=== PATIENT | female | born 1980 | race Caucasian/White ===

== ENCOUNTER 2019-07-14 13:08 | Emergency (ER) | payer SELFPAY ==
[2019-07-14 14:07] LABS: #Eosinphils 0.5 thou/uL (0.0-0.7); #Lymphocytes 1.9 thou/uL (1.20-3.40); #Monocytes 0.8 thou/uL (0.11-0.59); #Neutrophils 7.1 thou/uL (1.40-6.50); %Basophils 0.3 % (0.0-1.0); %Eosinophils 4.8 % (0.0-10.0); %Lymphocytes 18.5 % (21.0-51.0); %Monocytes 7.4 % (0.0-10.0); Hemoglobin 14.2 g/dL (12.0-16.0); Mean Corpuscular HGB CONC 32.1 g/dL (32.0-36.0); Mean Corpuscular Hemoglobin 28.2 pg (27.0-31.0); Mean Corpuscular Volume 87.8 fL (78.0-98.0); Mean Platelet Volume 8.7 fL (7.4-10.4); Platelet Count 258 thou/uL (130-400); Red Blood Cell (RBC) Count 5.04 mill/uL (4.20-5.40); White Blood Cell (WBC) Count 10.2 thou/uL (4.8-10.8)
--- NOTE | 2019-07-14 14:38 | ULT ---
TRANSVAGINAL PELVIC ULTRASOUND INCLUDING VASCULAR DUPLEX WITH COLOR AND SPECTRAL DOPPLER IMAGING: Date: 07/14/2019 HISTORY: Less than 6 week ectopic , right-sided pelvic pain. FINDINGS: Uterus measures 8.7 x 4.7 x 4.4 cm in size. No evidence for an intrauterine gestational sac. Right ovary measures 1.9 x 1.9 x 2.3 cm. Left ovary measures 2.0 x 2.2 x 2.9 cm. Endometrium thickened at 1.5 cm. No abnormal fluid collection within the pelvis. IMPRESSION: 1. No convincing ultrasound evidence for intrauterine or extrauterine at this ti me. Please correlate with serum HCGs, which are not available at the time of this exam. Depending on concern, short-term follow-up study in 1-2 weeks might be considered. 2. Somewhat thickened endometrium at 1.5 cm. POS: [facility]
[2019-07-14 14:51] LABS: Bilirubin Negative (Negative); Blood, Urine Negative (Negative); Clarity Clear (Clear); Glucose, Urine (Dipstick) Normal (Negative); Leukocyte Negative Leu/uL (Negative); Nitrite Negative (Negative); Protein, Urine (Dipstick) Negative (Neg-Trace); Urobilinogen Normal mg/dL (Less than 2)
== END 2019-07-14 15:31 | disposition home or self-care (01) ==
LOC: ERS 13:08
DX: O99.89 Other specified diseases and conditions complicating pregnancy, childbirth and the puerperium (principal); R10.31 Right lower quadrant pain; O99.511 Diseases of the respiratory system complicating pregnancy, first trimester; J45.909 Unspecified asthma, uncomplicated; F41.0 Panic disorder [episodic paroxysmal anxiety]; O99.341 Other mental disorders complicating pregnancy, first trimester; Z79.51 Long term (current) use of inhaled steroids; Z3A.01 Less than 8 weeks gestation of pregnancy
CPT/HCPCS: 36415; 76856; 81003; 84702; 85025

== ENCOUNTER → 2019-07-28 | Day surgery (SDC) | payer MEDICAID, SELFPAY ==
[~2019-07-28] MED LIST: Bupivacaine PF 0.5% 30 ML VIAL ONE; Clindamycin/D5W 900 mg/50 ml Premix Bag ONE; Fentanyl 100 MCG/2 ML VIAL ONE; Glycopyrrolate 0.2 MG/ML 5 ML SYRINGE ONE; Lidocaine 1% PF 5 ML VIAL ONE; Lidocaine 1% w/Epinephrine 1:100K 20 ML VIAL ONE; Midazolam HCl 2 mg/2 ml Vial ONE; Ondansetron HCl/PF 4 MG/2 ML Vial IVP PRN; PROPOFOL 200 MG/20 ML VIAL ONE; Promethazine HCl 25 MG/ML VIAL IM PRN; Promethazine HCl 25 MG/ML VIAL SLOW IVP PRN; Rocuronium Bromide 10 MG/ML (10ML VIAL) ONE; Succinylcholine Chloride 20 MG/ML 10 ml SYRINGE FS ONE
[2019-07-28 17:39] LABS: #Basophils 0.1 thou/uL (0.0-0.2); #Eosinphils 0.7 thou/uL (0.0-0.7); #Lymphocytes 2.2 thou/uL (1.20-3.40); #Monocytes 0.6 thou/uL (0.11-0.59); #Neutrophils 9.3 thou/uL (1.40-6.50); %Basophils 0.4 % (0.0-1.0); %Eosinophils 5.3 % (0.0-10.0); %Lymphocytes 17.4 % (21.0-51.0); %Monocytes 4.7 % (0.0-10.0); %Neutrophils 72.3 % (42.0-75.0); Hemoglobin 15.1 g/dL (12.0-16.0); Mean Corpuscular HGB CONC 33.1 g/dL (32.0-36.0); Mean Corpuscular Hemoglobin 29.6 pg (27.0-31.0); Mean Corpuscular Volume 89.4 fL (78.0-98.0); Mean Platelet Volume 8.4 fL (7.4-10.4); Platelet Count 274 thou/uL (130-400); RBC Distribution Width 14.3 % (11.5-14.5); Red Blood Cell (RBC) Count 5.11 mill/uL (4.20-5.40); White Blood Cell (WBC) Count 12.8 thou/uL (4.8-10.8)
--- NOTE | 2019-07-29 08:53 | OP ---
DATE OF PROCEDURE: 07/28/2019 PREOPERATIVE DIAGNOSIS: Suspected right ectopic following tubal reversal. POSTOPERATIVE DIAGNOSES: No definitive evidence of ectopic within the tubes. Omental adhesions to the anterior abdominal wall and uterine adhesions noted. PROCEDURE PERFORMED: Laparoscopy with thorough examination of the abdomen and pelvic cavities along with extensive lysis of adhesions. COMPLICATIONS: None. ESTIMATED BLOOD LOSS: Less than 50 mL. ANESTHESIA: General. DESCRIPTION OF PROCEDURE: After extensive counseling of Ms. Zuniga in my office as well as in the preoperative area where her was present along with a translation service run through the iPad with a live person. I was able to answer the patient's and family's questions in detail. The risks, benefits, and alternatives to surgery were explained to her as carefully and in as detailed a manner as possible. I did explain to Ms. Zuniga that I could not definitively be certain that she had an ectopic , but I had 6 main areas of concern leading to that possible diagnosis. 1. She had a history of tubal reversal followed by lack of successful pregnancies. This was her first she noted following tubal reversal. 2. She had an empty gestational sac that was not changing in size and did not contain yolk sac. This appeared to be very consistent with a pseudosac typical of ectopic . 3. Her beta-hCG had not risen in a normal fashion and was lower than expected for the expected gestational age and lower than expected given the number of days we were monitoring them in the outpatient setting. 4. The patient was noting she was having on and off new bright red spotting also typical of ectopic with a pseudosac. 5. The patient complained of intermittent right-sided adnexal pain. 6. We had ultrasound evidence of what appeared to be a cystic right adnexal mass adjacent to the right ovary. It was these 6 factors combined that made me have a high suspicion of ectopic in this patient, although I did tell her that I could not be 100% certain of this diagnosis. I also advised the patient to strongly consider the option of methotrexate to avoid surgical risks as well as surgical costs in the situation. The patient declined methotrexate therapy and would not even hear of it. She was adamant to undergo surgery to get a definitive diagnosis as well as being tired of going to the emergency room without answers and having sleepless nights, worried about her condition. We proceeded to the operating room where she underwent general endotracheal anesthesia. She was prepped and draped in normal sterile fashion. She received a Clifford catheter in her bladder for surgery. She was placed in a dorsal supine position and never underwent a vaginal preparation of any kind. No instrumentation, speculums, or cleaning solutions were introduced into the vagina as we did not want to introduce any potential risk of miscarriage in the situation if the diagnosis of ectopic was incorrect. We then used lidocaine with epinephrine at the umbilicus, made a small incision with scalpel, and entered the peritoneal cavity with a Veress needle. The peritoneal cavity was insufflated in the typical fashion and then a 5 mm blunt trocar was placed in the umbilicus. Confirmation was then done with the camera. The patient was placed in a Trendelenburg position and a second trocar was placed in the patient's left lower quadrant in order for a blunt probe to be used to perform a thorough and complete survey of the pelvis and accessible abdominal areas. We noted immediately that the patient had omental adhesions that were relatively thick and dense to the anterior abdominal wall, which made visualization somewhat difficult of other areas. Also of note , the fallopian tubes on both sides appeared to be approximately half of the normal length with the fimbriated ends scarred in place to the uterus, although those ends did not appear to be completely clubbed or completely abnormal per se. They certainly were short and adhesed to surrounding structures though. The anterior central uterus was also adhesed to the anterior abdominal wall. At this point, there was no blood or fluid noted within the abdomen and no definitive ectopic was seen. The right structure suspected on ultrasound hours earlier, could not be found within the right adnexal area, which was somewhat perplexing. After one more exhaustive survey of the pelvis and accessible abdominal areas, we decided to perform a lysis of adhesion in order to improve visualization and potentially improve the patient's pain that she was having. We used a 5 mm LigaSure to achieve that, and the procedure took approximately 25 to 30 minutes to complete. At the end of the lysis of adhesions, we had freed adhesions from the uterus to other surrounding structures and removed omental adhesions from the anterior abdominal wall. Still, no ectopic could be found. No bleeding or injuries were noted. The abdomen was allowed to be desufflated and the two incisions 5 mm in size were closed with 4-0 Monocryl at the dermal layer and then Dermabond was applied on the surface. The patient was then extubated, transferred to an ambulatory bed, and taken to recovery in stable condition. Once the patient was more awake, I met in the PACU unit with her and her and spent another 25 to 30 minutes with the family, explaining our findings and the next course of action. Job ID: [id number] MTDD
== END ==
LOC: SDC 16:38
PROVIDERS: ATTEND Obstetrics & Gynecology
PROC: 0DNU4ZZ Release Omentum, Percutaneous Endoscopic Approach (ICD-10-PCS; principal; 2019-07-28)
PROC: 0UN74ZZ Release Bilateral Fallopian Tubes, Percutaneous Endoscopic Approach (ICD-10-PCS; principal; 2019-07-28)
DX: K66.0 Peritoneal adhesions (postprocedural) (postinfection) (principal); N83.8 Other noninflammatory disorders of ovary, fallopian tube and broad ligament; F17.210 Nicotine dependence, cigarettes, uncomplicated; Z79.899 Other long term (current) drug therapy; Z88.0 Allergy status to penicillin; Z88.5 Allergy status to narcotic agent; Z98.890 Other specified postprocedural states
CPT/HCPCS: 36415; 84702; 85025; 86850; 86900; 86901; J2001; J2250; J2704; J3010; J3490; S0020

== ENCOUNTER 2019-07-29 18:32 | Emergency (ER) | payer SELFPAY | END 2019-07-29 19:40 | disposition left against medical advice (07) | LOC: ERS 18:32 | DX: Z53.21 Procedure and treatment not carried out due to patient leaving prior to being seen by health care provider (principal) ==

== ENCOUNTER 2019-08-05 19:24 | Emergency (ER) | payer MEDICAID, SELFPAY ==
[~2019-08-05 19:24] MED LIST changes: -Bupivacaine PF 0.5% 30 ML VIAL ONE; -Clindamycin/D5W 900 mg/50 ml Premix Bag ONE; -Fentanyl 100 MCG/2 ML VIAL ONE; -Glycopyrrolate 0.2 MG/ML 5 ML SYRINGE ONE; +Iopamidol 370 76% 100 ML VIAL ONE; -Lidocaine 1% PF 5 ML VIAL ONE; -Lidocaine 1% w/Epinephrine 1:100K 20 ML VIAL ONE; -Midazolam HCl 2 mg/2 ml Vial ONE; -Ondansetron HCl/PF 4 MG/2 ML Vial IVP PRN; -PROPOFOL 200 MG/20 ML VIAL ONE; -Promethazine HCl 25 MG/ML VIAL IM PRN; -Promethazine HCl 25 MG/ML VIAL SLOW IVP PRN; -Rocuronium Bromide 10 MG/ML (10ML VIAL) ONE; -Succinylcholine Chloride 20 MG/ML 10 ml SYRINGE FS ONE
[2019-08-05] MEDS ORDERED: Ondansetron PF 4 MG/2 ML Vial ONE (20:01)
[2019-08-05] MEDS ORDERED: Morphine 4 MG/ML VIAL ONE (20:01)
[2019-08-05 20:07] LABS: #Basophils 0.1 thou/uL (0.0-0.2); #Eosinphils 0.6 thou/uL (0.0-0.7); #Lymphocytes 2.6 thou/uL (1.20-3.40); #Monocytes 0.7 thou/uL (0.11-0.59); #Neutrophils 6.8 thou/uL (1.40-6.50); %Basophils 0.6 % (0.0-1.0); %Lymphocytes 23.8 % (21.0-51.0); %Monocytes 6.3 % (0.0-10.0); %Neutrophils 63.2 % (42.0-75.0); Hemoglobin 15.1 g/dL (12.0-16.0); Mean Corpuscular HGB CONC 34.3 g/dL (32.0-36.0); Mean Corpuscular Hemoglobin 30.6 pg (27.0-31.0); Mean Corpuscular Volume 89.2 fL (78.0-98.0); Mean Platelet Volume 7.9 fL (7.4-10.4); Platelet Count 334 thou/uL (130-400); Red Blood Cell (RBC) Count 4.95 mill/uL (4.20-5.40); White Blood Cell (WBC) Count 10.8 thou/uL (4.8-10.8)
[2019-08-05 20:27] LABS: ALT (SGPT) 20 U/L (8-55); AST (SGOT) 17 U/L (5-34); Albumin 4.2 g/dL (3.5-5.0); Alkaline Phosphatase 112 U/L (40-110); Anion Gap 17 mmol/L (10-20); BUN (Urea Nitrogen) 10 mg/dL (7.0-18.7); Bilirubin, Total Less than 0.2 mg/dL (0.2-1.2); Calc. Creatinine Clearance 0 mL/min (70-130); Calcium 9.2 mg/dL (7.8-10.44); Carbon Dioxide 19 mmol/L (22-29); Chloride 107 mmol/L (98-107); Estimated GFR-MDRD 89; Globulin 3.2 g/dL (2.4-3.5); Glucose 112 mg/dL (70-105); Potassium 3.6 mmol/L (3.5-5.1); Protein, Total 7.4 g/dL (6.0-8.3); Sodium 139 mmol/L (136-145)
--- NOTE | 2019-08-05 20:51 | CT ---
EXAM: CT ABDOMEN AND PELVIS HISTORY: Abdominal pain. Recent miscarriage. COMPARISON: None. Procedure: Multiple contiguous axial images were obtained and a CT of the abdomen and pelvis with IV contrast. C oronal reformats were performed. FINDINGS: Lower Chest: within normal limits. Vessels: Normal caliber aorta Heart: Normal heart size Abdomen: Portal vein:Patent. Nonspecific minimal periportal edema Gallbladder: Surgically absent Liver: within normal limits. Pancreas: within normal limits. Spleen: within normal limits. Adrenals: within normal limits. Kidneys: Symmetric enhancement. No obstructive uropathy. Peritoneum: No ascites or free air, no fluid collection. Bowel: Limited evaluation due to the lack of oral contrast administration. No evidence of bowel obstr uction. Ileocecal junction is unremarkable. Normal caliber appendix. Scattered fecal material in a nondistended, nondilated colon. Mesentery and Retroperitoneum: No enlarged mesenteric or retroperitoneal lymph nodes. Abdominal Wall: within normal limits. Pelvis: Reproductive Organs: Reproductive organs are unremarkable. Bilateral ovarian follicles are noted. Pelvis: No mass, lymphadenopathy, free air or free fluid. Bladder: within normal limits. Bones: within normal limits. IMPRESSION: No evidence of acute intraabdominal\pelvic abnormality.
== END 2019-08-05 21:36 | disposition home or self-care (01) ==
LOC: ERS 19:24
DX: R10.84 Generalized abdominal pain (principal); J45.909 Unspecified asthma, uncomplicated; F32.9 Major depressive disorder, single episode, unspecified; F41.9 Anxiety disorder, unspecified; F41.0 Panic disorder [episodic paroxysmal anxiety]; F17.210 Nicotine dependence, cigarettes, uncomplicated
CPT/HCPCS: 74177; 80053; 83605; 84702; 85025; 94760; 96361; 96374; 96375; J2270; J2405; Q9967

== ENCOUNTER 2019-09-11 18:08 | Emergency (ER) | payer OTHER ==
[2019-09-11 18:50] LABS: Bilirubin Negative (Negative); Blood, Urine Negative (Negative); Clarity Clear (Clear); Glucose, Urine (Dipstick) Normal (Negative); Leukocyte Negative Leu/uL (Negative); Nitrite Negative (Negative); Protein, Urine (Dipstick) 10 mg/dL (Neg-Trace); Urobilinogen Normal mg/dL (Less than 2)
[2019-09-11 18:51] LABS: Pregnancy Test - Urine (BHCG) Negative (Negative); Pregu Control Background? CLEAR/WHITE (CLR/WHITE); Pregu Control Bar Appear? YES (CONTROL BAR); Specific Gravity 1.029 (1.002-1.036)
[2019-09-12 10:11] LABS: SARS-CoV-2 MS2 Positive; SARS-CoV-2 N Gene Negative; SARS-CoV-2 S Gene Negative; SARS-CoV-2 orf1ab Negative
== END 2019-09-11 19:20 | disposition home or self-care (01) ==
LOC: ERS 18:08
DX: Z20.828 Contact with and (suspected) exposure to other viral communicable diseases (principal); L53.9 Erythematous condition, unspecified; J45.909 Unspecified asthma, uncomplicated; F32.9 Major depressive disorder, single episode, unspecified; F43.10 Post-traumatic stress disorder, unspecified; F17.210 Nicotine dependence, cigarettes, uncomplicated; Z79.51 Long term (current) use of inhaled steroids; Z79.52 Long term (current) use of systemic steroids
CPT/HCPCS: 81003; 81025; 87635; 99283; U0003

== ENCOUNTER 2019-11-01 11:45 | Emergency (ER) | payer MEDICAID ==
[2019-11-01] MEDS ORDERED: predniSONE 20 MG TAB ONE (12:09)
[2019-11-01] MEDS ORDERED: Magnesium 2 GM/50 ML BAG (IN WATER) ONE (12:10)
[2019-11-01] MEDS ORDERED: Albuterol Sulfate 2.5 mg/3 ml Neb ONE ×2 (12:11→12:12)
[2019-11-01 12:30] LABS: #Basophils 0.1 thou/uL (0.0-0.2); #Eosinphils 0.6 thou/uL (0.0-0.7); #Lymphocytes 1.6 thou/uL (1.20-3.40); #Monocytes 0.5 thou/uL (0.11-0.59); #Neutrophils 4.4 thou/uL (1.40-6.50); %Basophils 0.9 % (0.0-1.0); %Eosinophils 8.5 % (0.0-10.0); %Lymphocytes 22.5 % (21.0-51.0); %Monocytes 6.8 % (0.0-10.0); %Neutrophils 61.3 % (42.0-75.0); Hemoglobin 14.8 g/dL (12.0-16.0); Mean Corpuscular HGB CONC 33.5 g/dL (32.0-36.0); Mean Corpuscular Hemoglobin 30.8 pg (27.0-31.0); Mean Platelet Volume 8.5 fL (7.4-10.4); Platelet Count 252 thou/uL (130-400); RBC Distribution Width 12.3 % (11.5-14.5); White Blood Cell (WBC) Count 7.2 thou/uL (4.8-10.8)
[2019-11-01 12:50] LABS: ALT (SGPT) 15 U/L (8-55); AST (SGOT) 15 U/L (5-34); Albumin 4.1 g/dL (3.5-5.0); Alkaline Phosphatase 92 U/L (40-110); Anion Gap 11 mmol/L (10-20); BUN (Urea Nitrogen) 8 mg/dL (7.0-18.7); Bilirubin, Total 0.2 mg/dL (0.2-1.2); Calc. Creatinine Clearance 0 mL/min (70-130); Calcium 9.8 mg/dL (7.8-10.44); Carbon Dioxide 26 mmol/L (22-29); Chloride 106 mmol/L (98-107); Estimated GFR-MDRD Greater than 90; Glucose 85 mg/dL (70-105); Potassium 4.4 mmol/L (3.5-5.1); Protein, Total 7.1 g/dL (6.0-8.3); Sodium 139 mmol/L (136-145)
--- NOTE | 2019-11-01 13:01 | RAD ---
EXAM: Single view of the chest HISTORY: Wheezing and cough COMPARISON: None FINDINGS: Single view of the chest shows a normal sized cardiomediastinal silhouette. There is no freddy dence of consolidation, mass, or pleural effusion. The bones are unremarkable IMPRESSION: No evidence of acute cardiopulmonary disease
[2019-11-01 13:44] LABS: Pregnancy Test - Urine (BHCG) Negative (Negative); Pregu Control Background? CLEAR/WHITE (CLR/WHITE); Pregu Control Bar Appear? YES (CONTROL BAR); Specific Gravity 1.014 (1.002-1.036)
== END 2019-11-01 14:10 | disposition home or self-care (01) ==
LOC: ERS 11:45
DX: J45.901 Unspecified asthma with (acute) exacerbation (principal); F41.9 Anxiety disorder, unspecified; F32.9 Major depressive disorder, single episode, unspecified; Z79.51 Long term (current) use of inhaled steroids; Z87.891 Personal history of nicotine dependence
CPT/HCPCS: 71045; 80053; 81025; 84484; 85025; 85379; 93005; 94644; 96374; J3475; J7512; J7611

== ENCOUNTER 2019-12-13 18:42 | Emergency (ER) | payer OTHER ==
[2019-12-13] MEDS ORDERED: Dexamethasone 4 mg/ml Vial ONE (19:10)
[2019-12-13] MEDS ORDERED: Magnesium 2 GM/50 ML BAG (IN WATER) ONE (19:12)
[2019-12-13] MEDS ORDERED: Albuterol Sulfate 2.5 mg/3 ml Neb ONE (19:13)
== END 2019-12-13 19:58 | disposition home or self-care (01) ==
LOC: ERS 18:42
DX: J45.901 Unspecified asthma with (acute) exacerbation (principal); F32.9 Major depressive disorder, single episode, unspecified; F41.0 Panic disorder [episodic paroxysmal anxiety]; Z87.891 Personal history of nicotine dependence; Z79.899 Other long term (current) drug therapy
CPT/HCPCS: 96365; 96375; J1100; J3475; J7611; J7620

== ENCOUNTER 2020-01-06 21:25 | Emergency (ER) | payer OTHER ==
--- NOTE | 2020-01-06 22:33 | RAD ---
Radiograph left knee 4 views: HISTORY: 39-year-old female with acute left knee pain FINDINGS: Signs of ACL repair surgery involving proximal tibia and distal femur. Moderate DJD at patellofemoral compartment. Mild to moderate DJD at medial and lateral compartments. No acute fracture or dislocation. No joint effusion. Enthesophyte at inferior pole of patella at patellar tendon attachmen t site. IMPRESSION: 1.) No acute findings. 2.) Status post anterior cruciate ligament repair. 3) tricompartmental osteoarthrosis.
[2020-01-06] MEDS ORDERED: Morphine 4 MG/ML VIAL ONE (23:30)
== END 2020-01-06 23:52 | disposition home or self-care (01) ==
LOC: ERS 21:25
DX: S83.92XA Sprain of unspecified site of left knee, initial encounter (principal); E66.9 Obesity, unspecified; J45.909 Unspecified asthma, uncomplicated; F41.9 Anxiety disorder, unspecified; F32.9 Major depressive disorder, single episode, unspecified; Z79.51 Long term (current) use of inhaled steroids; Z79.899 Other long term (current) drug therapy; Z87.891 Personal history of nicotine dependence; X50.1XXA Overexertion from prolonged static or awkward postures, initial encounter
CPT/HCPCS: 96372; J2270

== ENCOUNTER 2020-02-02 08:45 | Emergency (ER) | payer OTHER | END 2020-02-02 15:14 | disposition home or self-care (01) | LOC: ERS 08:45 | DX: K03.81 Cracked tooth (principal); K04.7 Periapical abscess without sinus; K02.9 Dental caries, unspecified; E66.9 Obesity, unspecified; J45.909 Unspecified asthma, uncomplicated; F32.9 Major depressive disorder, single episode, unspecified; F41.0 Panic disorder [episodic paroxysmal anxiety] | CPT/HCPCS: 99283 ==

== ENCOUNTER 2020-03-05 09:46 | Emergency (ER) | payer OTHER ==
[2020-03-05] MEDS ORDERED: Dexamethasone 4 MG TAB ONE (10:01)
[2020-03-05] MEDS ORDERED: Albuterol Sulfate 1.25 MG/3 ML NEB ONE (11:06)
== END 2020-03-05 12:24 | disposition home or self-care (01) ==
LOC: ERS 09:46
DX: J45.901 Unspecified asthma with (acute) exacerbation (principal); E66.9 Obesity, unspecified; F41.9 Anxiety disorder, unspecified; F32.9 Major depressive disorder, single episode, unspecified; Z87.891 Personal history of nicotine dependence; Z79.51 Long term (current) use of inhaled steroids
CPT/HCPCS: 94640; J7620; J8540

== ENCOUNTER 2020-04-30 13:29 | Emergency (ER) | payer OTHER ==
--- NOTE | 2020-04-30 14:37 | RAD ---
LEFT KNEE 4 VIEWS: HISTORY: Injury. COMPARISON: Knee radiograph 01/06/2020. FINDINGS: High-grade degenerative disease of the medial and moderate degenerative of the patellofemoral compart ments with joint space narrowing, sclerosis, and flattening of the articular surfaces. Prior ACL gra ft. Lateral translation of the tibia approximately 4 mm. Moderate joint effusion. IMPRESSION: Advanced degenerative changes with likely insufficient collateral ligaments and anterior cruciate lig ament graft. POS: [facility]
== END 2020-04-30 14:32 | disposition home or self-care (01) ==
LOC: ERS 13:29
DX: S80.02XA Contusion of left knee, initial encounter (principal); J45.909 Unspecified asthma, uncomplicated; E66.9 Obesity, unspecified; F17.210 Nicotine dependence, cigarettes, uncomplicated; Z79.51 Long term (current) use of inhaled steroids; Z79.899 Other long term (current) drug therapy; W18.2XXA Fall in (into) shower or empty bathtub, initial encounter

== ENCOUNTER 2020-06-11 13:05 | Outpatient (CLI) | payer OTHER ==
[2020-06-11 13:28] LABS: BHCG - Serum Negative (NEGATIVE); Pregs Control Background? CLEAR/WHITE (CLR/WHITE); Pregs Control Bar Appear? YES (CONTROL BAR)
--- NOTE | 2020-06-11 14:47 | RAD ---
Exam: Hysterosalpingogram HISTORY: Female infertility. Tubal ligation reversal FINDINGS: Contrast was administered in a retrograde fashion. Endometrium appears be normal. There is contrast opacifying the left fallopian tube with free spillage and left hemipelvis. Right fallopian tube does not appear to opacify IMPRESSION: Patent left fallopian tube. There is free spillage in the left hemipelvis.
[2020-06-11] MEDS ORDERED: Iopamidol 300 61% 30 ML VIAL ONE (15:25)
== END 2020-06-11 13:06 | disposition home or self-care (01) ==
LOC: RAD 13:05
PROVIDERS: ATTEND Obstetrics & Gynecology
DX: Z32.00 Encounter for pregnancy test, result unknown (principal); N97.9 Female infertility, unspecified
CPT/HCPCS: 58340; 74740; 84703; Q9967

== ENCOUNTER 2020-06-20 19:06 | Emergency (ER) | payer OTHER ==
[2020-06-20] MEDS ORDERED: methylPREDNISolone Sod Succ 40 MG VIAL ONE (20:01)
[2020-06-20] MEDS ORDERED: hydrOXYzine 25 MG TAB ONE (20:01)
[2020-06-20] MEDS ORDERED: Magnesium 2 GM/50 ML BAG (IN WATER) ONE (20:01)
[2020-06-20 20:39] LABS: #Eosinphils 0.4 thou/uL (0.0-0.7); #Monocytes 0.6 thou/uL (0.11-0.59); #Neutrophils 4.7 thou/uL (1.40-6.50); %Basophils 0.4 % (0.0-1.0); %Eosinophils 5.5 % (0.0-10.0); %Lymphocytes 25.2 % (21.0-51.0); %Neutrophils 60.9 % (42.0-75.0); Hemoglobin 12.6 g/dL (12.0-16.0); Mean Corpuscular HGB CONC 34.4 g/dL (32.0-36.0); Mean Corpuscular Volume 90.2 fL (78.0-98.0); Mean Platelet Volume 8.2 fL (7.4-10.4); Platelet Count 240 thou/uL (130-400); RBC Distribution Width 12.4 % (11.5-14.5); Red Blood Cell (RBC) Count 4.08 mill/uL (4.20-5.40); White Blood Cell (WBC) Count 7.8 thou/uL (4.8-10.8)
[2020-06-20 21:01] LABS: ALT (SGPT) 13 U/L (8-55); AST (SGOT) 10 U/L (5-34); Albumin 3.8 g/dL (3.5-5.0); Alkaline Phosphatase 86 U/L (40-110); Anion Gap 13 mmol/L (10-20); BUN (Urea Nitrogen) 8 mg/dL (7.0-18.7); Bilirubin, Total Less than 0.2 mg/dL (0.2-1.2); Calc. Creatinine Clearance 0 mL/min (70-130); Calcium 8.2 mg/dL (7.8-10.44); Carbon Dioxide 23 mmol/L (22-29); Chloride 107 mmol/L (98-107); Globulin 2.8 g/dL (2.4-3.5); Glucose 96 mg/dL (70-105); Potassium 3.4 mmol/L (3.5-5.1); Protein, Total 6.6 g/dL (6.0-8.3); Sodium 140 mmol/L (136-145)
== END 2020-06-20 21:30 | disposition home or self-care (01) ==
LOC: ERS 19:06
DX: J45.901 Unspecified asthma with (acute) exacerbation (principal); Z87.891 Personal history of nicotine dependence; Z79.899 Other long term (current) drug therapy
CPT/HCPCS: 71045; 80053; 84484; 85025; 93005; 96374; J2920; J3475; J7620

== ENCOUNTER 2020-08-13 09:35 | Emergency (ER) | payer OTHER ==
[2020-08-13 11:00] LABS: #Eosinphils 0.7 thou/uL (0.0-0.7); #Lymphocytes 1.5 thou/uL (1.20-3.40); #Neutrophils 6.8 thou/uL (1.40-6.50); %Basophils 0.3 % (0.0-1.0); %Eosinophils 6.8 % (0.0-10.0); %Lymphocytes 15.3 % (21.0-51.0); %Monocytes 10.1 % (0.0-10.0); %Neutrophils 67.6 % (42.0-75.0); Hemoglobin 13.5 g/dL (12.0-16.0); Mean Corpuscular HGB CONC 32.6 g/dL (32.0-36.0); Mean Corpuscular Hemoglobin 29.1 pg (27.0-31.0); Mean Platelet Volume 8.1 fL (7.4-10.4); Platelet Count 363 thou/uL (130-400); RBC Distribution Width 13.1 % (11.5-14.5); Red Blood Cell (RBC) Count 4.64 mill/uL (4.20-5.40)
[2020-08-13 11:03] LABS: BHCG - Serum Negative (NEGATIVE); Pregs Control Background? CLEAR/WHITE (CLR/WHITE); Pregs Control Bar Appear? YES (CONTROL BAR)
[2020-08-13 12:17] LABS: ALT (SGPT) 16 U/L (8-55); AST (SGOT) 25 U/L (5-34); Albumin 4.4 g/dL (3.5-5.0); Alkaline Phosphatase 116 U/L (40-110); Anion Gap 19 mmol/L (10-20); BUN (Urea Nitrogen) 15 mg/dL (7.0-18.7); Bilirubin, Total 0.4 mg/dL (0.2-1.2); CRP (Inflammatory) 8.31 mg/dL (= or < 0.5); Calc. Creatinine Clearance 0 mL/min (70-130); Calcium 9.9 mg/dL (7.8-10.44); Carbon Dioxide 21 mmol/L (22-29); Chloride 100 mmol/L (98-107); Globulin 3.7 g/dL (2.4-3.5); Glucose 96 mg/dL (70-105); Potassium 3.8 mmol/L (3.5-5.1); Protein, Total 8.1 g/dL (6.0-8.3); Sodium 136 mmol/L (136-145)
[2020-08-13] MEDS ORDERED: Ketorolac Tromethamine 30 MG/ML VIAL ONE (12:24)
== END 2020-08-13 12:53 | disposition home or self-care (01) ==
LOC: ERS 09:35
DX: S80.212A Abrasion, left knee, initial encounter (principal); J45.909 Unspecified asthma, uncomplicated; F17.210 Nicotine dependence, cigarettes, uncomplicated; W19.XXXA Unspecified fall, initial encounter
CPT/HCPCS: 36415; 80053; 84703; 85025; 85652; 86140; 96374; J1885

== ENCOUNTER 2020-09-25 11:17 | Emergency (ER) | payer OTHER | END 2020-09-25 11:47 | disposition left against medical advice (07) | LOC: ERS 11:17 | DX: Z53.21 Procedure and treatment not carried out due to patient leaving prior to being seen by health care provider (principal) ==

== ENCOUNTER 2020-09-25 21:09 | Emergency (ER) | payer OTHER ==
[2020-09-25 21:50] LABS: #Basophils 0.1 thou/uL (0.0-0.2); #Eosinphils 0.4 thou/uL (0.0-0.7); #Monocytes 0.8 thou/uL (0.11-0.59); #Neutrophils 7.4 thou/uL (1.40-6.50); %Basophils 0.8 % (0.0-1.0); %Eosinophils 4.1 % (0.0-10.0); %Lymphocytes 18.9 % (21.0-51.0); %Monocytes 7.3 % (0.0-10.0); %Neutrophils 69.1 % (42.0-75.0); Hemoglobin 13.5 g/dL (12.0-16.0); Mean Corpuscular HGB CONC 32.2 g/dL (32.0-36.0); Mean Corpuscular Hemoglobin 28.3 pg (27.0-31.0); Mean Platelet Volume 8.7 fL (7.4-10.4); Platelet Count 318 thou/uL (130-400); RBC Distribution Width 13.5 % (11.5-14.5); Red Blood Cell (RBC) Count 4.76 mill/uL (4.20-5.40); White Blood Cell (WBC) Count 10.6 thou/uL (4.8-10.8)
[2020-09-25 22:12] LABS: ALT (SGPT) 12 U/L (8-55); AST (SGOT) 11 U/L (5-34); Albumin 3.9 g/dL (3.5-5.0); Alkaline Phosphatase 101 U/L (40-110); Anion Gap 18 mmol/L (10-20); BUN (Urea Nitrogen) 9 mg/dL (7.0-18.7); Bilirubin, Total Less than 0.2 mg/dL (0.2-1.2); Calc. Creatinine Clearance 0 mL/min (70-130); Calcium 9.1 mg/dL (7.8-10.44); Carbon Dioxide 17 mmol/L (22-29); Chloride 109 mmol/L (98-107); Globulin 3.2 g/dL (2.4-3.5); Glucose 88 mg/dL (70-105); Lipase 56 U/L (8-78); Potassium 3.5 mmol/L (3.5-5.1); Protein, Total 7.1 g/dL (6.0-8.3); Sodium 140 mmol/L (136-145)
== END 2020-09-25 22:52 | disposition home or self-care (01) ==
LOC: ERS 21:09
DX: J06.9 Acute upper respiratory infection, unspecified (principal)
CPT/HCPCS: 36415; 80053; 83690; 85025; 99283

== ENCOUNTER 2021-08-30 20:42 | Emergency (ER) | payer OTHER ==
[2021-08-30] MEDS ORDERED: Lorazepam 1 MG TAB ONE (20:53)
[2021-08-30] MEDS ORDERED: Ibuprofen 200 MG TAB ONE (21:15)
[2021-08-30] MEDS ORDERED: Benzonatate 100 MG CAP ONE ×2 (21:41→22:22)
[2021-08-30 21:53] LABS: SARS-CoV-2 NAA Rapid Test Not Detected (NotDetected)
== END 2021-08-30 22:24 | disposition home or self-care (01) ==
LOC: ERS 20:42
DX: J45.909 Unspecified asthma, uncomplicated (principal); R00.0 Tachycardia, unspecified; F17.210 Nicotine dependence, cigarettes, uncomplicated; Z20.822 Contact with and (suspected) exposure to COVID-19
CPT/HCPCS: 71045; 93005; 94640; J7620